=== PATIENT | female | born 1985 | race Caucasian/White ===

== ENCOUNTER → 2016-06-19 | Outpatient (CLI) | payer BC ==
[~2016-06-19] MED LIST: MOTRIN 600600 MG/TAB PO; MOTRIN 800800 MG/TAB PO; OMEGA-3 FISH1200 MG PO; PERCOCET 325 MG1 TA2 PO; PRENATAL1 TA1 PO; ZITHROMAX Z PA250 MG PO
== END ==
LOC: COL.CARD 08:00
DX: R00.2 Palpitations (principal)

== ENCOUNTER → 2021-01-02 | Outpatient (CLI) | payer BC ==
[~2021-01-02] MED LIST changes: +PRENATAL
== END ==
LOC: DIA.ED 09:31
DX: O24.419 Gestational diabetes mellitus in pregnancy, unspecified control (principal)
CPT/HCPCS: G0108

== ENCOUNTER 2021-02-18 06:12 | Inpatient (IN) | payer BC ==
[2021-02-18] VITALS (36 sets, daily range): BP systolic 100–154; BP diastolic 54–94; PULSE 55–87; TEMP 97.7–98.2
[~2021-02-18] VITALS: Ht 167.6 cm; Wt 85.0 kg
[~2021-02-18 06:12] MED LIST changes: -PRENATAL
--- NOTE | 2021-02-18 06:30 | NUR ---
PT AMBULATORY TO LR 3 FOR SCHEDULED IOL. ASSISTED INTO GOWN AND PLACED ON EFM/TOCO. CATEGORY 1 STRIP WITH MODERATE VARIABILITY. PT REPORTS INTERMITTENT CONTRACTIONS X24 HOURS, SOME TAKING HER BREATH AWAY. DENIES LEAKING OF FLUID. REPORTS POSITIVE MOVEMENT. STATES "MY LAST INDUCTION WENT VERY QUICK, DIDNT GET TO BREAK MY BED DOWN, HE JUST RAN IN AND CAUGHT OUR BABY." PT REASSURED THAT WE WILL MONITOR CLOSELY AND PROVIDE SAFETY MEASURES INDICATED. PT ORIENTED TO NEW ROOM, EDUCATED ON POC, CONSENTS SIGNED, DENIES FURTHER QUESTIONS OR CONCERNS AT THIS TIME. WILL RESUME WITH IOL PER PROTOCOL.
[2021-02-18] MEDS ORDERED: PRENATAL (06:58)
[2021-02-18 07:39] LABS: BASO % 0.5 % (0.0-2.0); EOS # 0.2 K/mm3 (0.0-0.7); GRAN # 5.8 K/mm3 (1.4-6.5); GRAN % 73.8 % (42.2-75.2); HEMATOCRIT 38.2 % (37.0-47.0); HEMOGLOBIN 13.3 g/dl (12.5-16.0); LYMPH # 1.4 K/mm3 (1.2-3.4); LYMPH % 17.8 % (20.0-51.0); MEAN CELL VOLUME 89 fl (80.0-100.0); MEAN CORPUSCULAR HEMOGLOBIN 31 pg (27.0-31.0); MEAN CORPUSCULAR HGB CONC 35 g/dl (33.0-37.0); MONO # 0.4 K/mm3 (0.1-0.6); MONO % 5.4 % (1.7-9.3); PLATELET COUNT 153 K/mm3 (130-400); RED BLOOD COUNT 4.29 M/mm3 (4.10-5.30); REDCELL DISTRIBUTION WIDTH-CV 12.9 % (11.5-14.5)
--- NOTE | 2021-02-18 13:16 | NUR ---
1316: PT REPORTS INCREASED PRESSURE AND INTERMITTENT URGE TO PUSH. SVE 8-9/90/-1. NOTIFIED AND EN ROUTE TO FACILITY. RECURRENT VARIABLES WITH CONTRACTIONS. 1340: PT COMPLETE. AT BEDSIDE ENCOURAGING PT TO BEAR DOWN IF THAT PROVIDES RELIEF. PT BEARS DOWN WITH CONTRACTIONS. 1354: PT REPORTS SHE IS UNABLE TO CONTROL URGE TO PUSH. BED BROKE DOWN AND ROOM PREPARED FOR DELIVERY. COACHES PT THROUGH PUSHING EFFORTS. CATEGORY 1 STRIP NOTED WITH PUSHING. 1358: OF VIABLE MALE . PLACED ON MATERNAL ABDOMEN. CORD CUT & CLAMPED X2 AND CUT BY FOB. CARE OF INFANT ASSUMED BY EZIO ESTRADA. 1401: OF PLACENTA. PITOCIN BOLUS STARTED PER PROTOCOL. FUNDUS FIRM AND UMBILICUS. BEGINS REPAIR OF 2ND DEGREE PERINEAL LACERATION. LOCHIA WNL AT THIS TIME. VITAL SIGNS STABLE. WILL CONTINUE PP CARES PER PROTOCOL.
[2021-02-19 01:00] VITALS: BP 118/74; PULSE 66; TEMP 97.8
[2021-02-19 05:00] VITALS: BP 110/63; PULSE 60; TEMP 97.7
[2021-02-19 08:17] VITALS: BP 115/69; PULSE 65; TEMP 97.8
[2021-02-19] MEDS ORDERED: PERCOCET 325 MG1 TA2 PO (08:27)
[2021-02-19] MEDS ORDERED: MOTRIN 800800 MG/TAB PO (08:27)
--- NOTE | 2021-02-19 09:13 | NUR ---
Initial visit; Parents thanked Document Design Specialist for offering congratulations and God's blessings for the of their son. Document Design Specialist thanked family for choosing [facility].
[2021-02-19 17:15] VITALS: BP 110/66; PULSE 73; TEMP 97.6
[2021-02-19 19:10] VITALS: BP 113/73; PULSE 71; TEMP 98.1
[2021-02-20 07:00] VITALS: BP 128/76; PULSE 88; TEMP 97.8
[2021-02-20 07:15] VITALS: BP 121/74; PULSE 69; TEMP 97.7
== END 2021-02-20 12:15 | disposition home or self-care (01) | DRG 807 ==
LOC: LDR 06:28 → OB 16:30
PROVIDERS: ADMIT Obstetrics & Gynecology
PROC: 10E0XZZ Delivery of Products of Conception, External Approach (ICD-10-PCS; principal; 2021-02-18)
PROC: 0KQM0ZZ Repair Perineum Muscle, Open Approach (ICD-10-PCS; 2021-02-18)
PROC: 10907ZC Drainage of Amniotic Fluid, Therapeutic from Products of Conception, Via Natural or Artificial Opening (ICD-10-PCS; 2021-02-18)
PROC: 3E033VJ Introduction of Other Hormone into Peripheral Vein, Percutaneous Approach (ICD-10-PCS; 2021-02-18)
DX: O24.420 Gestational diabetes mellitus in childbirth, diet controlled (principal); Z37.0 Single live birth; O99.824 Streptococcus B carrier state complicating childbirth; O70.1 Second degree perineal laceration during delivery; Z3A.39 39 weeks gestation of pregnancy; Z23 Encounter for immunization
CPT/HCPCS: J2540; J2590; J7120